=== PATIENT | male | born 1960 | race Caucasian/White ===

== ENCOUNTER 2018-01-27 13:48 | Inpatient (IN) | payer BC ==
[~2018-01-27] VITALS: Ht 177.8 cm; Wt 103.0 kg
[~2018-01-27 13:48] MED LIST: Aspirin E.C. PO; BABY ASPIRIN81 M1; CIPRO500 MG PO; DILAUDID2 MG PO; ENDOCET 5-3251 EACH PO; NAPROSYN500 MG PO; ONDANSETRON ODT4 MG PO; PERCOCET 5/31 TABLET PO; TAMSULOSIN HCL0.4 MG PO; TORADOL10 MG PO; ZANTAC150 MG PO; ZOFRAN4 MG PO; Zithromax PO
[2018-01-27 14:55] LABS: BASOPHIL (%) 1.5 % (0-1); BASOPHIL COUNT 0.1 K/uL (0-0.1); EOSINOPHIL (%) 4.3 % (0-5); EOSINOPHIL COUNT 0.2 K/uL (0-0.3); HEMOGLOBIN 14.3 G/DL (12.5-16.6); IMMATURE GRANULOCYTE (%) 0.4 % (0.0-0.7); LYMPHOCYTE (%) 21.9 % (15-42); MCH 26.1 PG (29.0-34.0); MCV 76.6 FL (86-99); MONOCYTE (%) 7.2 % (3-12); MONOCYTE COUNT 0.3 K/uL (0-0.8); NEUTROPHIL (%) 64.7 % (45-76); PLATELET COUNT 115 K/uL (156-360); RBC DIS.WIDTH-CV 13.2 % (11.8-14.6); RBC DIS.WIDTH-SD 36.7 % (39-53); RED BLOOD COUNT 5.48 M/uL (4.00-5.50); WHITE BLOOD COUNT 4.6 K/uL (4.1-10.2)
[2018-01-27 15:06] LABS: ALBUMIN 4.2 g/dL (3.2-4.8); CHLORIDE 103 mEq/L (99-109); SODIUM 135 mEq/L (136-147)
[2018-01-27 15:08] LABS: GLUCOSE 98 mg/dL (70-99); TOTAL PROTEIN 7.4 g/dL (6.4-8.3)
[2018-01-27 15:10] LABS: TOTAL BILIRUBIN 3.6 mg/dL (0.0-1.0)
[2018-01-27 15:12] LABS: ALKALINE PHOSPHATASE 105 IU/L (3-129); GFR ESTIMATE (CALCULATED) > 59 mL/min/ (58.99-99999)
[2018-01-27 15:13] LABS: UREA NITROGEN (BUN) 14 mg/dL (9-23)
[2018-01-27 15:14] LABS: AST (GOT) 48 IU/L (2-34)
[2018-01-27 15:15] LABS: ALT (GPT) 71 IU/L (3-49); LIPASE 20 U/L (1.0-51.0)
[2018-01-27 15:18] LABS: APPEARANCE SL.HAZY ((CLEAR)); BILIRUBIN NEGATIVE; BLOOD SMALL; COLOR YELLOW ((YELLOW)); GLUCOSE (STRIP) NEGATIVE; KETONES 5; LEUKOCYTES NEGATIVE; NITRITE NEGATIVE; PROTEIN (STRIP) 30
[2018-01-27 15:21] LABS: BACTERIA NONE SEEN /HPF; EPITHELIAL CELLS NONE SEEN /HPF; MUCUS TRACE /LPF; RED BLOOD CELLS 0-5 /HPF (0-5); WHITE BLOOD CELLS 0-5 /HPF (0-5)
[2018-01-27 18:05] LABS: MONOSPOT (MONONUCLEOSIS SEROL) NEGATIVE
[2018-01-27] MEDS ORDERED: IBUPROFEN800 MG PO (21:47)
[2018-01-27] MEDS ORDERED: AMOX TR-K CLV1 EAC4 PO (21:48)
[2018-01-27 22:54] VITALS: BP 153/73
[2018-01-28 04:01] VITALS: BP 130/80
[2018-01-28 07:30] VITALS: BP 128/73
[2018-01-28 08:14] LABS: HEMATOCRIT 40.3 % (38.0-50.0); HEMOGLOBIN 13.2 G/DL (12.5-16.6); MCH 25.8 PG (29.0-34.0); MCHC 32.8 G/DL (30.0-36.0); MCV 78.7 FL (86-99); PLATELET COUNT 96 K/uL (156-360); RBC DIS.WIDTH-CV 13.5 % (11.8-14.6); RBC DIS.WIDTH-SD 38.6 % (39-53); RED BLOOD COUNT 5.12 M/uL (4.00-5.50); WHITE BLOOD COUNT 4.5 K/uL (4.1-10.2)
[2018-01-28 08:19] LABS: INTER. NORMALIZED RATIO 1.2
[2018-01-28 08:41] LABS: ALBUMIN 3.6 G/DL (3.2-4.8); ALKALINE PHOSPHATASE 87 IU/L (3-129); ALT (GPT) 50 IU/L (3-49); AST (GOT) 33 IU/L (2-34); CHLORIDE 106 MEQ/L (99-109); CREATININE 0.9 MG/DL (0.6-1.3); GFR ESTIMATE (CALCULATED) > 59 mL/min/ (58.99-99999); GLUCOSE 111 mg/dL (70-99); MAGNESIUM 1.8 mg/dl (1.3-2.7); SODIUM 139 MEQ/L (136-147); TOTAL BILIRUBIN 2.2 MG/DL (0.0-1.0); TOTAL PROTEIN 5.8 G/DL (6.4-8.3); UREA NITROGEN (BUN) 10 mg/dL (9-23)
[2018-01-28 09:04] LABS: BASOPHIL COUNT 0.1 K/uL (0-0.1); EOSINOPHIL (%) 4.6 % (0-5); EOSINOPHIL COUNT 0.2 K/uL (0-0.3); IMMATURE GRANULOCYTE (%) 0.2 % (0.0-0.7); LYMPHOCYTE (%) 28.5 % (15-42); LYMPHOCYTE COUNT 1.3 K/uL (1.0-2.8); MONOCYTE (%) 8.4 % (3-12); MONOCYTE COUNT 0.4 K/uL (0-0.8); NEUTROPHIL (%) 56.3 % (45-76); NEUTROPHIL COUNT 2.5 K/uL (1.8-6.4)
[2018-01-28 09:28] LABS: ERTH.SED.RATE 11 MM/HR (0-20)
[2018-01-28 09:36] LABS: LYME DISEASE SEROLOGY SCREEN NEGATIVE (NEGATIVE)
[2018-01-28 11:20] LABS: ANTI-HEPATITIS A VIRUS (IGM) Nonreactive; ANTI-HEPATITIS B CORE (IGM) Nonreactive; HEPATITIS B SURFACE ANTIGEN Nonreactive; HEPATITIS C ANTIBODY Nonreactive
[2018-01-28 11:44] VITALS: BP 148/76
[2018-01-28 15:39] VITALS: BP 180/86
[2018-01-28 23:10] VITALS: BP 170/85
[2018-01-29 00:36] VITALS: BP 139/70
[2018-01-29 04:18] VITALS: BP 136/79
[2018-01-29 08:44] VITALS: BP 132/65
[2018-01-29 11:12] LABS: HEMOGLOBIN 12.6 G/DL (12.5-16.6); MCH 25.9 PG (29.0-34.0); MCHC 33.2 G/DL (30.0-36.0); PLATELET COUNT 112 K/uL (156-360); RBC DIS.WIDTH-CV 13.4 % (11.8-14.6); RBC DIS.WIDTH-SD 38.3 % (39-53); RED BLOOD COUNT 4.87 M/uL (4.00-5.50); WHITE BLOOD COUNT 4.4 K/uL (4.1-10.2)
[2018-01-29 11:41] LABS: ALBUMIN 3.7 G/DL (3.2-4.8); ALKALINE PHOSPHATASE 95 IU/L (3-129); ALT (GPT) 45 IU/L (3-49); AST (GOT) 30 IU/L (2-34); CHLORIDE 105 MEQ/L (99-109); CREATININE 0.8 MG/DL (0.6-1.3); GFR ESTIMATE (CALCULATED) > 59 mL/min/ (58.99-99999); GLUCOSE 123 mg/dL (70-99); POTASSIUM 3.6 MEQ/L (3.7-5.4); SODIUM 138 MEQ/L (136-147); TOTAL PROTEIN 5.8 G/DL (6.4-8.3); UREA NITROGEN (BUN) 9 mg/dL (9-23)
[2018-01-29 11:43] LABS: TOTAL BILIRUBIN 1.4 MG/DL (0.0-1.0)
[2018-01-29 16:33] VITALS: BP 153/85
[2018-01-29 23:27] VITALS: BP 129/82
[2018-01-30 06:53] LABS: C-REACTIVE PROTEIN 41.9 MG/L (0-10); CHLORIDE 105 MEQ/L (99-109); GFR ESTIMATE (CALCULATED) > 59 mL/min/ (58.99-99999); GLUCOSE 102 mg/dL (70-99); POTASSIUM 3.9 MEQ/L (3.7-5.4); SODIUM 137 MEQ/L (136-147); UREA NITROGEN (BUN) 10 mg/dL (9-23)
[2018-01-30 09:21] VITALS: BP 145/87
[2018-01-30] MEDS ORDERED: TYLENOL EXTRA500 MG PO (09:42)
[2018-01-30] MEDS ORDERED: DOXYCYCLINE HY100 M3 PO ×2 (09:42→09:49)
[2018-01-30 17:33] LABS: Rickettsia (RMSF) IgG Not Detected (Not Detected); Rickettsia (RMSF) IgM Not Detected (Not Detected)
[2018-02-02] MEDS ORDERED: IBUPROFEN800 MG PO (19:05)
[2018-02-02] MEDS ORDERED: DOXYCYCLINE HY100 M3 PO (19:06)
== END 2018-01-30 10:17 | disposition home or self-care (01) | DRG 864 ==
LOC: EME 13:48 → EDOF 20:34 → 2EAST 20:34 → ENRESERV 20:40 → 2EAST 22:23
PROVIDERS: Emergency Medicine; Family Medicine; Physician Assistant Medical
DX: R50.9 Fever, unspecified (principal); A28.9 Zoonotic bacterial disease, unspecified; R01.1 Cardiac murmur, unspecified; R17 Unspecified jaundice; K52.9 Noninfective gastroenteritis and colitis, unspecified; R79.89 Other specified abnormal findings of blood chemistry; K40.90 Unilateral inguinal hernia, without obstruction or gangrene, not specified as recurrent; D69.6 Thrombocytopenia, unspecified; R74.0 Nonspecific elevation of levels of transaminase and lactic acid dehydrogenase [LDH]; E87.1 Hypo-osmolality and hyponatremia; R19.7 Diarrhea, unspecified
CPT/HCPCS: 70486; 71046; 74176; 76705; 80048; 80053; 80074; 81003; 82803; 83605; 83690; 83735; 85025; 85027; 85610; 85652; 86000 90; 86140; 86308; 86618; 86664; 86665; 86757 90; 87040; 87086; 87502; 93005; 93306; 99281; 99285; J0696; J1580; J1650; J1885; J7030; J7050; J7120